=== PATIENT | male | born 1945 | race African-American/Black ===

== ENCOUNTER 2019-08-21 15:25 | Inpatient (IN) | payer MEDICARE ==
[~2019-08-21] VITALS: Ht 177.8 cm; Wt 64.0 kg
[2019-08-21 16:28] LABS: EOSINOPHILS % 0.2 % (0.0-5.0); HEMATOCRIT. 50.6 % (42.0-52.0); HEMOGLOBIN. 16.7 g/dL (14.0-18.0); LYMPHOCYTES % 12.7 % (20.0-50.0); MEAN CORPUSCULAR HEMOGLOBIN 31.5 pg (28.0-32.0); MEAN CORPUSCULAR VOLUME 95.6 fL (80.0-94.0); MONOCYTES % 13.3 % (2.0-8.0); NEUTROPHILS % 72.8 % (40.0-76.0); PLATELET 138 x1000/uL (130-400); RED BLOOD CELL COUNT 5.29 mill/uL (4.7-6.1); RED CELL DISTRIBUTION WIDTH 16.8 % (11.6-14.6)
[2019-08-21] MEDS ORDERED: SODIUM CHLORIDE 0.9% 1,000 ML IV ONE (16:33)
[2019-08-21 16:37] LABS: CHLORIDE 101 mEq/L (98-107)
[2019-08-21 16:41] LABS: ETHANOL BLOOD < 10 mg/dL
[2019-08-21 16:47] LABS: D-DIMER 5.14 mg/L FEU (<0.50); INR 1.6; PROTHROMBIN TIME 15.9 sec (9.6-11.0)
[2019-08-21] MEDS ORDERED: DEXTROSE 50% WATER 50ML SYRINGE IV ONE (17:00)
[2019-08-21] MEDS ORDERED: CALCIUM CHLORIDE 1GM/10ML SYR IV ONE (17:00)
[2019-08-21] MEDS ORDERED: ASPIRIN 325MG EC TABLET PO ONE (17:00)
[2019-08-21] MEDS ORDERED: INSULIN REGULAR (HUMULIN R) 300UNITS/3ML IV ONE (17:00)
[2019-08-21] MEDS ORDERED: SODIUM BICARBONATE 8.4% 1 MEQ/ML 50ML SYR IV ONE (17:00)
[2019-08-21 17:45] LABS: CLARITY URINE CLOUDY (CLEAR); COLOR URINE DARK YELLOW (YELLOW); KETONES URINE TRACE (NEGATIVE); LEUKOCYTE ESTERASE URINE TRACE (NEGATIVE); NITRITE URINE NEGATIVE (NEGATIVE); OCCULT BLOOD URINE NEGATIVE (NEGATIVE); PROTEIN URINE 1+ (NEGATIVE); SPECIFIC GRAVITY URINE 1.024 (1.005-1.030)
[2019-08-21 18:12] LABS: *AMPHETAMINES SCREEN URINE NEGATIVE (NEGATIVE); *BARBITURATES SCREEN URINE NEGATIVE (NEGATIVE); *BENZODIAZEPINES SCREEN URINE NEGATIVE (NEGATIVE); *COCAINE SCREEN URINE NEGATIVE (NEGATIVE); METHADONE URINE SCREEN NEGATIVE (NEGATIVE); OPIATES URINE SCREEN NEGATIVE (NEGATIVE)
[2019-08-21 18:13] LABS: CANNABINOID URINE SCREEN NEGATIVE (NEGATIVE); PHENCYCLIDINE URINE SCREEN NEGATIVE (NEGATIVE)
[2019-08-21] MEDS ORDERED: DILTIAZEM HCL 5MG/ML 5ML VIAL IV ONE (18:30)
[2019-08-21] MEDS ORDERED: ENOXAPARIN 80MG/0.8ML SYR SUBCUT ONE (19:00)
[2019-08-21] MEDS ORDERED: DILTIAZEM HCL 125 MG in DEXT 5% WATER 100 ML IV ONE (19:30)
[2019-08-21] MEDS ORDERED: FUROSEMIDE 20MG/2ML VIAL IVP ONE (19:30)
[2019-08-21] MEDS ORDERED: DILTIAZEM HCL 125 MG in DEXT 5% WATER 100 ML IV SCH (19:45)
[2019-08-21] MEDS ORDERED: IOHEXOL-350 100 ML BOTTLE ONE (20:10)
[2019-08-21 22:40] VITALS: BP 108/67
[2019-08-21] MEDS ORDERED: CLONIDINE 0.1MG TABLET PO PRN (22:45)
[2019-08-21] MEDS ORDERED: DOCUSATE SODIUM 100MG CAPSULE PO PRN (22:45)
[2019-08-21] MEDS ORDERED: MAGNESIUM/ALUMINUM HYDROXIDE/SIMETHICONE 30ML UDC PO PRN (22:45)
[2019-08-21] MEDS ORDERED: HYDROCODONE/ACETAMINOPHEN 5/325MG TABLET PO PRN (22:45)
[2019-08-21] MEDS ORDERED: ACETAMINOPHEN 325MG TABLET PO PRN (22:45)
[2019-08-21] MEDS ORDERED: KETOROLAC 15MG/ML VIAL IV PRN (22:45)
[2019-08-22] VITALS (12 sets, daily range): BP systolic 90–139; BP diastolic 55–79
[2019-08-22] MEDS ORDERED: DILTIAZEM HCL 125 MG in DEXT 5% WATER 100 ML IV SCH (02:00)
[2019-08-22 07:18] LABS: CHLORIDE 104 mEq/L (98-107)
[2019-08-22 07:25] LABS: BASOPHILS % 0.4 % (0.0-2.0); EOSINOPHILS % 0.1 % (0.0-5.0); HEMATOCRIT. 46.9 % (42.0-52.0); HEMOGLOBIN. 15.2 g/dL (14.0-18.0); LYMPHOCYTES % 14.3 % (20.0-50.0); MEAN CORPUSCULAR HEMOGLOBIN 31.2 pg (28.0-32.0); MEAN CORPUSCULAR VOLUME 96.2 fL (80.0-94.0); MEAN PLATELET VOLUME 11.7 fl (7.4-10.4); MONOCYTES % 12.7 % (2.0-8.0); NEUTROPHILS % 72.5 % (40.0-76.0); PLATELET 100 x1000/uL (130-400); RED BLOOD CELL COUNT 4.88 mill/uL (4.7-6.1); RED CELL DISTRIBUTION WIDTH 16.4 % (11.6-14.6)
[2019-08-22 07:43] LABS: PHOSPHORUS 4.7 mg/dL (2.5-4.9)
[2019-08-22 07:44] LABS: LDL CHOLESTEROL 29 mg/dL (5-100)
[2019-08-22 07:45] LABS: HDL CHOLESTEROL 35 mg/dL (40-59)
[2019-08-22] MEDS ORDERED: FUROSEMIDE 20MG/2ML VIAL IVP SCH ×2 (08:30→11:00)
[2019-08-22] MEDS: ENOXAPARIN 80MG/0.8ML SYR SUBCUT SCH ×2 (08:43→20:49)
[2019-08-22 11:02] LABS: PLATELET ESTIMATE DECREASED
[2019-08-22] MEDS: LISINOPRIL 2.5MG TABLET PO SCH (11:38)
[2019-08-22 12:50] LABS: HEPATITIS A AB IGM NEGATIVE (NEGATIVE)
[2019-08-23] VITALS (48 sets, daily range): BP systolic 61–145; BP diastolic 35–86
[2019-08-23 06:20] LABS: CHLORIDE 103 mEq/L (98-107)
[2019-08-23 06:29] LABS: BASOPHILS % 0.8 % (0.0-2.0); EOSINOPHILS % 0.4 % (0.0-5.0); LYMPHOCYTES % 17.1 % (20.0-50.0); MEAN CORPUSCULAR HEMOGLOBIN 31.3 pg (28.0-32.0); MEAN CORPUSCULAR VOLUME 96.2 fL (80.0-94.0); MEAN PLATELET VOLUME 11.8 fl (7.4-10.4); MONOCYTES % 14.1 % (2.0-8.0); NEUTROPHILS % 67.6 % (40.0-76.0); PLATELET 130 x1000/uL (130-400); RED BLOOD CELL COUNT 4.78 mill/uL (4.7-6.1); RED CELL DISTRIBUTION WIDTH 16.2 % (11.6-14.6)
[2019-08-23] MEDS: ENOXAPARIN 80MG/0.8ML SYR SUBCUT SCH ×2 (08:02→20:27)
[2019-08-23] MEDS: LISINOPRIL 2.5MG TABLET PO SCH (08:03)
[2019-08-23] MEDS ORDERED: FUROSEMIDE 40MG/4ML VIAL IV SCH (09:00)
[2019-08-23] MEDS ORDERED: FUROSEMIDE 20MG/2ML VIAL IVP NR (10:00)
[2019-08-24] VITALS (60 sets, daily range): BP systolic 93–136; BP diastolic 52–94
[2019-08-24 05:03] LABS: BASOPHILS % 0.7 % (0.0-2.0); EOSINOPHILS % 0.7 % (0.0-5.0); HEMATOCRIT. 47.9 % (42.0-52.0); HEMOGLOBIN. 15.7 g/dL (14.0-18.0); LYMPHOCYTES % 15.1 % (20.0-50.0); MEAN CORPUSCULAR HEMOGLOBIN 31.1 pg (28.0-32.0); MEAN CORPUSCULAR VOLUME 95.1 fL (80.0-94.0); MEAN PLATELET VOLUME 11.5 fl (7.4-10.4); MONOCYTES % 12.2 % (2.0-8.0); NEUTROPHILS % 71.3 % (40.0-76.0); PLATELET 126 x1000/uL (130-400); RED BLOOD CELL COUNT 5.03 mill/uL (4.7-6.1); RED CELL DISTRIBUTION WIDTH 16.5 % (11.6-14.6)
[2019-08-24 05:10] LABS: CHLORIDE 104 mEq/L (98-107)
[2019-08-24] MEDS: ENOXAPARIN 80MG/0.8ML SYR SUBCUT SCH ×2 (08:08→21:14)
[2019-08-24] MEDS ORDERED: FUROSEMIDE 40MG/4ML VIAL IVP SCH (09:30)
[2019-08-24] MEDS: MILRINONE 20MG-DEXT 5% PREMIX 100 ML IV SCH (10:38)
[2019-08-24] MEDS: LORAZEPAM 2MG/ML CPJ IV PRN (10:48)
[2019-08-24] MEDS ORDERED: MILRINONE 20MG-DEXT 5% PREMIX 100 ML IV SCH (12:16)
[2019-08-24 13:40] LABS: INR 1.4
[2019-08-25] VITALS (84 sets, daily range): BP systolic 93–152; BP diastolic 51–97
[2019-08-25] MEDS: MILRINONE 20MG-DEXT 5% PREMIX 100 ML IV SCH (04:30)
[2019-08-25 04:32] LABS: HEMATOCRIT. 45.5 % (42.0-52.0); HEMOGLOBIN. 14.9 g/dL (14.0-18.0); MEAN CORPUSCULAR HEMOGLOBIN 31.3 pg (28.0-32.0); MEAN CORPUSCULAR VOLUME 95.4 fL (80.0-94.0); MEAN PLATELET VOLUME 11.3 fl (7.4-10.4); PLATELET 120 x1000/uL (130-400); RED BLOOD CELL COUNT 4.77 mill/uL (4.7-6.1)
[2019-08-25 04:38] LABS: INR 1.3
[2019-08-25 04:53] LABS: CHLORIDE 106 mEq/L (98-107)
[2019-08-25] MEDS ORDERED: FUROSEMIDE 40MG/4ML VIAL IVP SCH (08:30)
[2019-08-25] MEDS: ENOXAPARIN 80MG/0.8ML SYR SUBCUT SCH ×2 (09:00→21:22)
[2019-08-25] MEDS: POTASSIUM CHLORIDE 20MEQ TABLET SR PO SCH (09:40)
[2019-08-25] MEDS ORDERED: SODIUM BICARBONATE 4% (2.4MEQ) 5ML VIAL IV ONE (09:49)
[2019-08-25 14:07] LABS: PLATELET ESTIMATE SLIGHTLY DECREASED
[2019-08-25] MEDS: THROAT LOZENGES-BENZOCAINE/MENTH/CETYLPYRD CL LOZENGES MM PRN ×2 (16:20→22:45)
[2019-08-25] MEDS: FUROSEMIDE 40MG/4ML VIAL IVP SCH (17:14)
[2019-08-25] MEDS: LORAZEPAM 2MG/ML CPJ IV PRN (22:46)
[2019-08-26] VITALS (74 sets, daily range): BP systolic 73–155; BP diastolic 30–92
[2019-08-26 04:51] LABS: CHLORIDE 102 mEq/L (98-107)
[2019-08-26 04:54] LABS: BASOPHILS % 0.7 % (0.0-2.0); EOSINOPHILS % 1.9 % (0.0-5.0); HEMOGLOBIN. 15.7 g/dL (14.0-18.0); LYMPHOCYTES % 18.7 % (20.0-50.0); MEAN CORPUSCULAR HEMOGLOBIN 31.5 pg (28.0-32.0); MEAN CORPUSCULAR VOLUME 96.4 fL (80.0-94.0); MEAN PLATELET VOLUME 11.4 fl (7.4-10.4); MONOCYTES % 10.1 % (2.0-8.0); NEUTROPHILS % 68.6 % (40.0-76.0); PLATELET 128 x1000/uL (130-400); RED BLOOD CELL COUNT 4.98 mill/uL (4.7-6.1); RED CELL DISTRIBUTION WIDTH 16.1 % (11.6-14.6)
[2019-08-26] MEDS: FUROSEMIDE 40MG/4ML VIAL IVP SCH ×2 (08:10→16:16)
[2019-08-26] MEDS: POTASSIUM CHLORIDE 20MEQ TABLET SR PO SCH (08:10)
[2019-08-26] MEDS: ENOXAPARIN 80MG/0.8ML SYR SUBCUT SCH ×2 (08:11→20:20)
[2019-08-26] MEDS: CARVEDILOL 3.125 MG TABLET PO SCH ×2 (10:30→21:00)
[2019-08-26] MEDS: MILRINONE 20MG-DEXT 5% PREMIX 100 ML IV PRN (11:27)
[2019-08-26] MEDS: LORAZEPAM 2MG/ML CPJ IV PRN (21:42)
[2019-08-27] VITALS (89 sets, daily range): BP systolic 62–166; BP diastolic 46–113
[2019-08-27 04:45] LABS: BASOPHILS % 0.9 % (0.0-2.0); EOSINOPHILS % 2.5 % (0.0-5.0); HEMATOCRIT. 43.6 % (42.0-52.0); HEMOGLOBIN. 14.2 g/dL (14.0-18.0); MEAN CORPUSCULAR HEMOGLOBIN 31.1 pg (28.0-32.0); MEAN CORPUSCULAR VOLUME 95.7 fL (80.0-94.0); MEAN PLATELET VOLUME 11.4 fl (7.4-10.4); MONOCYTES % 12.5 % (2.0-8.0); NEUTROPHILS % 54.1 % (40.0-76.0); PLATELET 116 x1000/uL (130-400); RED BLOOD CELL COUNT 4.56 mill/uL (4.7-6.1); RED CELL DISTRIBUTION WIDTH 16.2 % (11.6-14.6)
[2019-08-27 04:49] LABS: CHLORIDE 103 mEq/L (98-107)
[2019-08-27] MEDS: MILRINONE 20MG-DEXT 5% PREMIX 100 ML IV PRN (08:11)
[2019-08-27] MEDS ORDERED: LIDOCAINE HCL 1% 20ML VIAL (Pyxis) INJ ONE (08:14)
[2019-08-27] MEDS ORDERED: IODIXANOL 320MG/ML 100 ML BOTTLE IV ONE (08:15)
[2019-08-27] MEDS ORDERED: MIDAZOLAM HCL 2 MG/2 ML VIAL ONE (08:15)
[2019-08-27] MEDS ORDERED: FENTANYL CITRATE/PF 50MCG/ML 2ML VIAL ONE (08:16)
[2019-08-27] MEDS ORDERED: ATROPINE SULFATE 1MG/10ML SYR IV PRN (09:00)
[2019-08-27] MEDS ORDERED: ACETAMINOPHEN 325MG TABLET PO PRN (09:00)
[2019-08-27] MEDS: CARVEDILOL 3.125 MG TABLET PO SCH ×2 (09:00→13:11)
[2019-08-27] MEDS: POTASSIUM CHLORIDE 20MEQ TABLET SR PO SCH (10:09)
[2019-08-27] MEDS: FUROSEMIDE 40MG/4ML VIAL IVP SCH ×2 (10:09→17:23)
[2019-08-27] MEDS ORDERED: MILRINONE 20MG-DEXT 5% PREMIX 100 ML IV PRN ×2 (13:45→20:00)
[2019-08-27] MEDS: AMIODARONE HCL 900 MG in DEXT 5% WATER 482 ML IV SCH (15:02)
[2019-08-27] MEDS: METOCLOPRAMIDE HCL 10MG/2ML VIAL IV PRN (18:38)
[2019-08-27] MEDS ORDERED: ONDANSETRON HCL 4MG TABLET PO PRN (19:30)
[2019-08-27] MEDS: MILRINONE 20MG-DEXT 5% PREMIX 100 ML IV SCH (20:51)
[2019-08-27] MEDS ORDERED: ENOXAPARIN 80MG/0.8ML SYR SUBCUT SCH (21:00)
[2019-08-28] VITALS (71 sets, daily range): BP systolic 88–135; BP diastolic 46–84
[2019-08-28] MEDS ORDERED: FUROSEMIDE 100MG/10ML VIAL IVP SCH (02:30)
[2019-08-28 05:05] LABS: BASOPHILS % 0.1 % (0.0-2.0); HEMATOCRIT. 46.8 % (42.0-52.0); HEMOGLOBIN. 15.2 g/dL (14.0-18.0); LYMPHOCYTES % 8.7 % (20.0-50.0); MEAN CORPUSCULAR HEMOGLOBIN 31.2 pg (28.0-32.0); MEAN CORPUSCULAR VOLUME 95.9 fL (80.0-94.0); MEAN PLATELET VOLUME 11.2 fl (7.4-10.4); MONOCYTES % 7.6 % (2.0-8.0); NEUTROPHILS % 83.6 % (40.0-76.0); PLATELET 133 x1000/uL (130-400); RED BLOOD CELL COUNT 4.88 mill/uL (4.7-6.1); RED CELL DISTRIBUTION WIDTH 16.1 % (11.6-14.6)
[2019-08-28] MEDS: MILRINONE 20MG-DEXT 5% PREMIX 100 ML IV SCH (08:00)
[2019-08-28] MEDS ORDERED: MILRINONE 20MG-DEXT 5% PREMIX 100 ML IV SCH (08:00)
[2019-08-28] MEDS: POTASSIUM CHLORIDE 20MEQ TABLET SR PO SCH (09:00)
[2019-08-28] MEDS: CARVEDILOL 3.125 MG TABLET PO SCH (09:30)
[2019-08-28] MEDS ORDERED: DOBUTAMINE HCL 500 MG in DEXT 5% WATER 210 ML IV SCH (13:00)
[2019-08-28] MEDS: DOPAMINE 800MG/500ML PREMIX 500 ML IV SCH (13:54)
[2019-08-28] MEDS: AMIODARONE HCL 900 MG in DEXT 5% WATER 482 ML IV SCH (14:29)
[2019-08-28] MEDS ORDERED: LIDOCAINE HCL 1% 20ML VIAL (Pyxis) INJ ONE (14:34)
[2019-08-28] MEDS: ENOXAPARIN 80MG/0.8ML SYR SUBCUT SCH ×2 (14:37→22:00)
[2019-08-28] MEDS ORDERED: FUROSEMIDE 100MG/10ML VIAL IVP NR (16:00)
[2019-08-28] MEDS ORDERED: METOLAZONE 5MG TABLET PO NR (16:00)
[2019-08-28 17:20] LABS: CREATINE KINASE 124 IU/L (39-308)
[2019-08-28] MEDS: AMIODARONE HCL 200 MG TABLET PO SCH (20:14)
[2019-08-28] MEDS ORDERED: ZOLPIDEM TARTRATE 5MG TABLET PO PRN (20:15)
[2019-08-29] VITALS (46 sets, daily range): BP systolic 88–124; BP diastolic 33–89
[2019-08-29] MEDS ORDERED: FUROSEMIDE 100MG/10ML VIAL IVP SCH ×2 (01:00→06:30)
[2019-08-29] MEDS ORDERED: METOLAZONE 2.5MG TABLET PO SCH ×2 (01:00→06:00)
[2019-08-29] MEDS: ENOXAPARIN 80MG/0.8ML SYR SUBCUT SCH ×2 (01:21→21:00)
[2019-08-29 05:39] LABS: BASOPHILS % 0.5 % (0.0-2.0); EOSINOPHILS % 0.1 % (0.0-5.0); HEMATOCRIT. 50.6 % (42.0-52.0); HEMOGLOBIN. 16.3 g/dL (14.0-18.0); LYMPHOCYTES % 15.4 % (20.0-50.0); MEAN CORPUSCULAR HEMOGLOBIN 30.8 pg (28.0-32.0); MEAN CORPUSCULAR VOLUME 95.7 fL (80.0-94.0); RED BLOOD CELL COUNT 5.28 mill/uL (4.7-6.1); RED CELL DISTRIBUTION WIDTH 15.9 % (11.6-14.6)
[2019-08-29] MEDS: AMIODARONE HCL 200 MG TABLET PO SCH ×2 (08:24→21:23)
[2019-08-29 08:59] LABS: BG BASE EXCESS 4.4 mmol/L (-2.0-2.0); BG CARBOXYHEMOGLOBIN 1.3 % (0.5-1.5); BG DEOXYHEMOGLOBIN 1.1 % (0.0-5.0); BG FRACTION INSPIRED OXYGEN 36; BG HCO3 ACT 27.4 mmol/L (22.0-26.0); BG METHEMOGLOBIN 0.4 % (0.0-1.5); BG OXYGEN SATURATION 98.9 % (92.0-98.5); BG OXYHEMOGLOBIN 97.2 % (94.0-97.0); BG PCO2 35.8 mmHg (35.0-45.0); BG PH 7.501 (7.350-7.450); BG PO2 131.6 mmHg (75.0-100.0); BG SAMPLE SITE RIGHT RADIAL; BG TOTAL HEMOGLOBIN 16.6 g/dL (12.0-18.0); BG VENT MODE NASAL CANNULA
[2019-08-29] MEDS ORDERED: SODIUM POLYSTYRENE SULFONATE 15 G/60 ML BOT PO SCH (09:00)
[2019-08-29] MEDS: DOBUTAMINE HCL IN DEXTROSE 5 % 250 ML IV SCH (10:17)
[2019-08-29 10:38] LABS: MEAN PLATELET VOLUME 11.9 fl (7.4-10.4); PLATELET 147 x1000/uL (130-400)
[2019-08-29] MEDS: DOPAMINE 800MG/500ML PREMIX 500 ML IV SCH (11:57)
[2019-08-29] MEDS ORDERED: POTASSIUM CHLORIDE 20MEQ TABLET SR PO NR (21:15)
[2019-08-30] VITALS (66 sets, daily range): BP systolic 90–126; BP diastolic 48–102
[2019-08-30 05:47] LABS: BASOPHILS % 0.2 % (0.0-2.0); EOSINOPHILS % 0.9 % (0.0-5.0); HEMATOCRIT. 48.8 % (42.0-52.0); LYMPHOCYTES % 14.1 % (20.0-50.0); MEAN CORPUSCULAR HEMOGLOBIN 30.9 pg (28.0-32.0); MEAN CORPUSCULAR VOLUME 94.4 fL (80.0-94.0); MONOCYTES % 10.2 % (2.0-8.0); NEUTROPHILS % 74.6 % (40.0-76.0); RED BLOOD CELL COUNT 5.16 mill/uL (4.7-6.1); RED CELL DISTRIBUTION WIDTH 15.7 % (11.6-14.6)
[2019-08-30 05:53] LABS: CHLORIDE 95 mEq/L (98-107)
[2019-08-30 06:09] LABS: PHOSPHORUS 2.3 mg/dL (2.5-4.9)
[2019-08-30 06:49] LABS: PLATELET 105 x1000/uL (130-400)
[2019-08-30] MEDS: PANTOPRAZOLE 40MG DR TABLET PO SCH (07:50)
[2019-08-30] MEDS ORDERED: POTASSIUM CHLORIDE 20MEQ TABLET SR PO SCH (08:00)
[2019-08-30] MEDS: AMIODARONE HCL 200 MG TABLET PO SCH ×2 (08:37→21:05)
[2019-08-30] MEDS: ENOXAPARIN 80MG/0.8ML SYR SUBCUT SCH (08:37)
[2019-08-30] MEDS ORDERED: POTASSIUM PHOS,M-BASIC-D-BASIC 10 MMOL in DEXT 5% WATER 246.6667 ML IV SCH (09:00)
[2019-08-30] MEDS ORDERED: LIDOCAINE HCL 1% 20ML VIAL (Pyxis) INJ ONE (09:10)
[2019-08-30] MEDS ORDERED: MIDAZOLAM HCL 2 MG/2 ML VIAL ONE (09:46)
[2019-08-30] MEDS ORDERED: SODIUM CHLORIDE 0.9% 10ML VIAL ONE (11:00)
[2019-08-30] MEDS ORDERED: CEFAZOLIN SODIUM 1000MG/VIAL ONE (11:00)
[2019-08-30 11:17] LABS: BG BASE EXCESS 5.8 mmol/L (-2.0-2.0); BG CARBOXYHEMOGLOBIN 0.4 % (0.5-1.5); BG DEOXYHEMOGLOBIN 31.5 % (0.0-5.0); BG FRACTION INSPIRED OXYGEN 32; BG HCO3 ACT 30.8 mmol/L (22.0-26.0); BG METHEMOGLOBIN 0.1 % (0.0-1.5); BG OXYGEN SATURATION 68.3 % (92.0-98.5); BG PCO2 45.9 mmHg (35.0-45.0); BG PH 7.445 (7.350-7.450); BG PO2 37.2 mmHg (75.0-100.0); BG SAMPLE SITE A-LINE; BG TOTAL HEMOGLOBIN 15.9 g/dL (12.0-18.0); BG VENT MODE NASAL CANNULA
[2019-08-30 11:20] LABS: BG BASE EXCESS 7.5 mmol/L (-2.0-2.0); BG DEOXYHEMOGLOBIN 0.9 % (0.0-5.0); BG FRACTION INSPIRED OXYGEN 32; BG HCO3 ACT 31.9 mmol/L (22.0-26.0); BG METHEMOGLOBIN 0.4 % (0.0-1.5); BG OXYGEN SATURATION 99.1 % (92.0-98.5); BG OXYHEMOGLOBIN 97.7 % (94.0-97.0); BG PCO2 43.5 mmHg (35.0-45.0); BG PH 7.483 (7.350-7.450); BG PO2 148.5 mmHg (75.0-100.0); BG SAMPLE SITE A-LINE; BG TOTAL HEMOGLOBIN 15.6 g/dL (12.0-18.0); BG VENT MODE NASAL CANNULA
[2019-08-30] MEDS ORDERED: FENTANYL CITRATE/PF 50MCG/ML 2ML VIAL ONE (11:26)
[2019-08-30 11:34] LABS: BG BASE EXCESS 5.6 mmol/L (-2.0-2.0); BG CARBOXYHEMOGLOBIN 0.6 % (0.5-1.5); BG DEOXYHEMOGLOBIN 35.8 % (0.0-5.0); BG FRACTION INSPIRED OXYGEN 32; BG HCO3 ACT 30.7 mmol/L (22.0-26.0); BG METHEMOGLOBIN 0.1 % (0.0-1.5); BG OXYGEN SATURATION 63.9 % (92.0-98.5); BG OXYHEMOGLOBIN 63.5 % (94.0-97.0); BG PCO2 46.4 mmHg (35.0-45.0); BG PH 7.439 (7.350-7.450); BG PO2 35.3 mmHg (75.0-100.0); BG SAMPLE SITE A-LINE; BG TOTAL HEMOGLOBIN 15.3 g/dL (12.0-18.0); BG VENT MODE NASAL CANNULA
[2019-08-30 11:37] LABS: BG BASE EXCESS 7.6 mmol/L (-2.0-2.0); BG CARBOXYHEMOGLOBIN 1.3 % (0.5-1.5); BG DEOXYHEMOGLOBIN 0.8 % (0.0-5.0); BG FRACTION INSPIRED OXYGEN 32; BG HCO3 ACT 31.6 mmol/L (22.0-26.0); BG METHEMOGLOBIN 0.4 % (0.0-1.5); BG OXYGEN SATURATION 99.2 % (92.0-98.5); BG OXYHEMOGLOBIN 97.5 % (94.0-97.0); BG PCO2 41.7 mmHg (35.0-45.0); BG PH 7.497 (7.350-7.450); BG PO2 140.5 mmHg (75.0-100.0); BG SAMPLE SITE A-LINE; BG TOTAL HEMOGLOBIN 15.5 g/dL (12.0-18.0); BG VENT MODE NASAL CANNULA
[2019-08-30] MEDS ORDERED: IODIXANOL 320MG/ML 100 ML BOTTLE IV ONE (11:50)
[2019-08-30] MEDS ORDERED: GENTAMICIN SULF 40MG/ML 2ML VIAL ONE (12:00)
[2019-08-30] MEDS ORDERED: GENTAMICIN/NS IRRIGATION 500 ML IR ONE (12:00)
[2019-08-30] MEDS: DOBUTAMINE HCL IN DEXTROSE 5 % 250 ML IV SCH (12:49)
[2019-08-30 14:10] LABS: BG BASE EXCESS 2.7 mmol/L (-2.0-2.0); BG CARBOXYHEMOGLOBIN 0.7 % (0.5-1.5); BG DEOXYHEMOGLOBIN 1.2 % (0.0-5.0); BG FRACTION INSPIRED OXYGEN 32; BG HCO3 ACT 23.6 mmol/L (22.0-26.0); BG METHEMOGLOBIN 0.2 % (0.0-1.5); BG OXYGEN SATURATION 98.8 % (92.0-98.5); BG OXYHEMOGLOBIN 97.9 % (94.0-97.0); BG PCO2 27.8 mmHg (35.0-45.0); BG PH 7.546 (7.350-7.450); BG PO2 119.5 mmHg (75.0-100.0); BG SAMPLE SITE A-LINE; BG TOTAL HEMOGLOBIN 17.4 g/dL (12.0-18.0); BG VENT MODE NASAL CANNULA
[2019-08-30 14:12] LABS: BG BASE EXCESS 5.2 mmol/L (-2.0-2.0); BG CARBOXYHEMOGLOBIN 0.8 % (0.5-1.5); BG DEOXYHEMOGLOBIN 62.4 % (0.0-5.0); BG FRACTION INSPIRED OXYGEN 32; BG HCO3 ACT 31.6 mmol/L (22.0-26.0); BG METHEMOGLOBIN 0.1 % (0.0-1.5); BG OXYHEMOGLOBIN 36.7 % (94.0-97.0); BG PH 7.402 (7.350-7.450); BG PO2 < 30.3 mmHg (75.0-100.0); BG SAMPLE SITE A-LINE; BG TOTAL HEMOGLOBIN 17.3 g/dL (12.0-18.0); BG VENT MODE NASAL CANNULA
[2019-08-30] MEDS ORDERED: FUROSEMIDE 20MG/2ML VIAL ONE (14:16)
[2019-08-30] MEDS ORDERED: HYDROCODONE/ACETAMINOPHEN 5/325MG TABLET PO PRN (15:30)
[2019-08-30] MEDS: DOPAMINE 800MG/500ML PREMIX 500 ML IV SCH (16:02)
[2019-08-31] VITALS (78 sets, daily range): BP systolic 75–136; BP diastolic 38–100
[2019-08-31] MEDS: DOPAMINE 800MG/500ML PREMIX 500 ML IV SCH (05:01)
[2019-08-31 05:09] LABS: BASOPHILS % 0.3 % (0.0-2.0); EOSINOPHILS % 0.4 % (0.0-5.0); HEMATOCRIT. 49.5 % (42.0-52.0); HEMOGLOBIN. 16.2 g/dL (14.0-18.0); LYMPHOCYTES % 9.9 % (20.0-50.0); MEAN CORPUSCULAR VOLUME 94.7 fL (80.0-94.0); MONOCYTES % 8.9 % (2.0-8.0); NEUTROPHILS % 80.5 % (40.0-76.0); RED BLOOD CELL COUNT 5.22 mill/uL (4.7-6.1); RED CELL DISTRIBUTION WIDTH 15.6 % (11.6-14.6)
[2019-08-31 05:33] LABS: CHLORIDE 95 mEq/L (98-107)
[2019-08-31 05:45] LABS: PHOSPHORUS 3.1 mg/dL (2.5-4.9)
[2019-08-31] MEDS ORDERED: POTASSIUM CHLORIDE 20MEQ TABLET SR PO SCH (07:30)
[2019-08-31] MEDS: AMIODARONE HCL 200 MG TABLET PO SCH ×2 (07:52→21:14)
[2019-08-31] MEDS: PANTOPRAZOLE 40MG DR TABLET PO SCH (07:52)
[2019-08-31 09:01] LABS: MEAN PLATELET VOLUME 11.2 fl (7.4-10.4); PLATELET 119 x1000/uL (130-400)
[2019-08-31] MEDS ORDERED: FUROSEMIDE 40MG/4ML VIAL IVP SCH (10:45)
[2019-08-31] MEDS ORDERED: NON FORMULARY PATIENT HOME MED XX SCH (11:45)
[2019-08-31] MEDS: DOBUTAMINE HCL IN DEXTROSE 5 % 250 ML IV SCH (11:50)
[2019-08-31] MEDS: APIXABAN 5 MG TABLET PO SCH ×2 (11:50→16:02)
[2019-08-31] MEDS: CARVEDILOL 3.125 MG TABLET PO SCH ×2 (11:52→21:00)
[2019-08-31] MEDS: SACUBITRIL/VALSARTAN 24/26 TAB PO SCH ×2 (13:01→21:16)
[2019-08-31] MEDS: SPIRONOLACTONE 25MG TABLET PO SCH (13:01)
[2019-08-31] MEDS: SILDENAFIL CITRATE 20MG TABLET PO SCH ×2 (13:01→21:16)
[2019-08-31] MEDS: FUROSEMIDE 40MG/4ML VIAL IVP SCH (16:02)
[2019-08-31] MEDS: DOPAMINE 800MG PREMIX (DOUBLE) 250 ML IV PRN (17:18)
[2019-08-31] MEDS ORDERED: CARVEDILOL 3.125 MG TABLET PO SCH (21:00)
[2019-09-01] VITALS (79 sets, daily range): BP systolic 45–125; BP diastolic 32–69
[2019-09-01] MEDS: SILDENAFIL CITRATE 20MG TABLET PO SCH ×3 (05:31→23:24)
[2019-09-01 06:07] LABS: HEMATOCRIT. 52.3 % (42.0-52.0); HEMOGLOBIN. 17.2 g/dL (14.0-18.0); MEAN CORPUSCULAR HEMOGLOBIN 30.9 pg (28.0-32.0); MEAN CORPUSCULAR VOLUME 93.9 fL (80.0-94.0); MEAN PLATELET VOLUME 11.4 fl (7.4-10.4); PLATELET 123 x1000/uL (130-400); RED BLOOD CELL COUNT 5.57 mill/uL (4.7-6.1); RED CELL DISTRIBUTION WIDTH 15.7 % (11.6-14.6)
[2019-09-01 06:09] LABS: CHLORIDE 93 mEq/L (98-107)
[2019-09-01 06:16] LABS: PHOSPHORUS 2.2 mg/dL (2.5-4.9)
[2019-09-01 07:41] LABS: PLATELET ESTIMATE DECREASED
[2019-09-01] MEDS: FUROSEMIDE 40MG/4ML VIAL IVP SCH (08:59)
[2019-09-01] MEDS: PANTOPRAZOLE 40MG DR TABLET PO SCH (08:59)
[2019-09-01] MEDS ORDERED: SODIUM PHOS,M-BASIC-D-BASIC 15 MM in DEXT 5% WATER 245 ML IV SCH (09:00)
[2019-09-01] MEDS: SACUBITRIL/VALSARTAN 24/26 TAB PO SCH (09:00)
[2019-09-01] MEDS: CARVEDILOL 3.125 MG TABLET PO SCH (09:00)
[2019-09-01] MEDS: SPIRONOLACTONE 25MG TABLET PO SCH (09:00)
[2019-09-01] MEDS ORDERED: LOSARTAN POTASSIUM 25 MG TABLET PO SCH (09:00)
[2019-09-01] MEDS: APIXABAN 5 MG TABLET PO SCH ×2 (09:00→17:03)
[2019-09-01] MEDS: POTASSIUM CHLORIDE 20MEQ TABLET SR PO SCH (09:01)
[2019-09-01] MEDS: AMIODARONE HCL 200 MG TABLET PO SCH ×2 (09:01→23:26)
[2019-09-02] VITALS (98 sets, daily range): BP systolic 71–164; BP diastolic 42–78
[2019-09-02 05:17] LABS: BASOPHILS % 0.5 % (0.0-2.0); EOSINOPHILS % 1.1 % (0.0-5.0); HEMOGLOBIN. 15.2 g/dL (14.0-18.0); MEAN CORPUSCULAR HEMOGLOBIN 31.2 pg (28.0-32.0); MEAN CORPUSCULAR VOLUME 94.4 fL (80.0-94.0); NEUTROPHILS % 76.4 % (40.0-76.0); RED BLOOD CELL COUNT 4.87 mill/uL (4.7-6.1); RED CELL DISTRIBUTION WIDTH 15.7 % (11.6-14.6)
[2019-09-02 06:23] LABS: CHLORIDE 91 mEq/L (98-107)
[2019-09-02 06:33] LABS: PHOSPHORUS 2.2 mg/dL (2.5-4.9)
[2019-09-02] MEDS: SILDENAFIL CITRATE 20MG TABLET PO SCH ×2 (06:34→14:00)
[2019-09-02] MEDS: PANTOPRAZOLE 40MG DR TABLET PO SCH (07:50)
[2019-09-02 08:16] LABS: MEAN PLATELET VOLUME 11.3 fl (7.4-10.4); PLATELET 122 x1000/uL (130-400)
[2019-09-02] MEDS: APIXABAN 5 MG TABLET PO SCH ×2 (08:43→17:00)
[2019-09-02] MEDS: POTASSIUM CHLORIDE 20MEQ TABLET SR PO SCH (08:43)
[2019-09-02] MEDS: AMIODARONE HCL 200 MG TABLET PO SCH (08:44)
[2019-09-02] MEDS: SPIRONOLACTONE 25MG TABLET PO SCH (08:53)
[2019-09-02] MEDS ORDERED: SODIUM PHOS,M-BASIC-D-BASIC 20 MM in DEXT 5% WATER 243.3333 ML IV SCH (09:00)
[2019-09-02] MEDS ORDERED: FUROSEMIDE 40MG/4ML VIAL IVP SCH (09:00)
[2019-09-02] MEDS ORDERED: POTASSIUM CHLORIDE 20MEQ TABLET SR PO SCH (11:30)
[2019-09-03] VITALS (72 sets, daily range): BP systolic 72–131; BP diastolic 17–93
[2019-09-03] MEDS: SILDENAFIL CITRATE 20MG TABLET PO SCH ×2 (00:10→06:15)
[2019-09-03] MEDS: DOPAMINE 800MG PREMIX (DOUBLE) 250 ML IV PRN (02:31)
[2019-09-03 06:12] LABS: BASOPHILS % 0.7 % (0.0-2.0); EOSINOPHILS % 2.1 % (0.0-5.0); HEMATOCRIT. 41.8 % (42.0-52.0); HEMOGLOBIN. 13.7 g/dL (14.0-18.0); LYMPHOCYTES % 14.4 % (20.0-50.0); MEAN CORPUSCULAR HEMOGLOBIN 30.7 pg (28.0-32.0); MEAN CORPUSCULAR VOLUME 93.9 fL (80.0-94.0); MEAN PLATELET VOLUME 11.1 fl (7.4-10.4); MONOCYTES % 9.7 % (2.0-8.0); NEUTROPHILS % 73.1 % (40.0-76.0); PLATELET 129 x1000/uL (130-400); RED BLOOD CELL COUNT 4.45 mill/uL (4.7-6.1); RED CELL DISTRIBUTION WIDTH 15.3 % (11.6-14.6)
[2019-09-03 06:53] LABS: CHLORIDE 93 mEq/L (98-107)
[2019-09-03 07:02] LABS: PHOSPHORUS 2.4 mg/dL (2.5-4.9)
[2019-09-03] MEDS: APIXABAN 5 MG TABLET PO SCH ×2 (08:49→18:01)
[2019-09-03] MEDS: SPIRONOLACTONE 25MG TABLET PO SCH (08:49)
[2019-09-03] MEDS: POTASSIUM CHLORIDE 20MEQ TABLET SR PO SCH (08:49)
[2019-09-03] MEDS: FUROSEMIDE 40MG TABLET PO SCH (08:49)
[2019-09-03] MEDS: AMIODARONE HCL 200 MG TABLET PO SCH (08:50)
[2019-09-03] MEDS: PANTOPRAZOLE 40MG DR TABLET PO SCH (08:50)
[2019-09-03] MEDS: POTASSIUM-SODIUM PHOSPHATE POWDER PACKET PO SCH ×2 (12:54→18:00)
[2019-09-03] MEDS: MIDODRINE HCL 2.5MG TABLET PO SCH ×2 (12:54→18:01)
[2019-09-04] VITALS (46 sets, daily range): BP systolic 57–112; BP diastolic 33–79
[2019-09-04 05:48] LABS: BASOPHILS % 1.2 % (0.0-2.0); EOSINOPHILS % 1.8 % (0.0-5.0); HEMATOCRIT. 43.5 % (42.0-52.0); HEMOGLOBIN. 14.1 g/dL (14.0-18.0); LYMPHOCYTES % 23.6 % (20.0-50.0); MEAN CORPUSCULAR VOLUME 95.4 fL (80.0-94.0); MEAN PLATELET VOLUME 10.7 fl (7.4-10.4); MONOCYTES % 10.2 % (2.0-8.0); NEUTROPHILS % 63.2 % (40.0-76.0); PLATELET 143 x1000/uL (130-400); RED BLOOD CELL COUNT 4.56 mill/uL (4.7-6.1); RED CELL DISTRIBUTION WIDTH 15.6 % (11.6-14.6)
[2019-09-04 05:56] LABS: CHLORIDE 95 mEq/L (98-107)
[2019-09-04 06:20] LABS: PHOSPHORUS 2.7 mg/dL (2.5-4.9)
[2019-09-04] MEDS: AMIODARONE HCL 200 MG TABLET PO SCH (08:44)
[2019-09-04] MEDS: MIDODRINE HCL 5MG TABLET PO SCH ×3 (08:44→18:09)
[2019-09-04] MEDS: FUROSEMIDE 40MG TABLET PO SCH (08:44)
[2019-09-04] MEDS: APIXABAN 5 MG TABLET PO SCH ×2 (08:44→18:09)
[2019-09-04] MEDS: POTASSIUM-SODIUM PHOSPHATE POWDER PACKET PO SCH ×2 (08:44→18:08)
[2019-09-04] MEDS: PANTOPRAZOLE 40MG DR TABLET PO SCH (08:44)
[2019-09-04] MEDS: METOPROLOL TARTRATE 25MG TABLET PO SCH (20:31)
[2019-09-05] VITALS (46 sets, daily range): BP systolic 49–116; BP diastolic 25–75
[2019-09-05] MEDS: METOPROLOL TARTRATE 25MG TABLET PO SCH ×3 (00:48→20:33)
[2019-09-05 05:20] LABS: BASOPHILS % 1.1 % (0.0-2.0); EOSINOPHILS % 1.6 % (0.0-5.0); HEMATOCRIT. 39.5 % (42.0-52.0); HEMOGLOBIN. 12.8 g/dL (14.0-18.0); LYMPHOCYTES % 18.6 % (20.0-50.0); MEAN CORPUSCULAR HEMOGLOBIN 30.5 pg (28.0-32.0); MEAN CORPUSCULAR VOLUME 94.3 fL (80.0-94.0); MEAN PLATELET VOLUME 10.6 fl (7.4-10.4); MONOCYTES % 9.6 % (2.0-8.0); NEUTROPHILS % 69.1 % (40.0-76.0); PLATELET 145 x1000/uL (130-400); RED BLOOD CELL COUNT 4.19 mill/uL (4.7-6.1); RED CELL DISTRIBUTION WIDTH 15.3 % (11.6-14.6)
[2019-09-05 05:27] LABS: CHLORIDE 97 mEq/L (98-107)
[2019-09-05] MEDS: MIDODRINE HCL 5MG TABLET PO SCH ×3 (08:14→16:42)
[2019-09-05] MEDS: FUROSEMIDE 40MG TABLET PO SCH (08:14)
[2019-09-05] MEDS: POTASSIUM-SODIUM PHOSPHATE POWDER PACKET PO SCH ×2 (08:15→16:41)
[2019-09-05] MEDS: APIXABAN 5 MG TABLET PO SCH ×2 (08:15→16:40)
[2019-09-05] MEDS: PANTOPRAZOLE 40MG DR TABLET PO SCH (08:15)
[2019-09-05] MEDS: AMIODARONE HCL 200 MG TABLET PO SCH (08:36)
[2019-09-05] MEDS ORDERED: LORAZEPAM 0.5MG TABLET PO PRN (11:45)
[2019-09-05] MEDS: LORAZEPAM 0.5MG TABLET PO PRN ×2 (12:01→23:34)
[2019-09-05 12:39] LABS: HEMATOCRIT 42.5 % (42.0-52.0); HEMOGLOBIN 13.8 g/dL (14.0-18.0)
[2019-09-06] VITALS (26 sets, daily range): BP systolic 77–113; BP diastolic 46–78
[2019-09-06 05:32] LABS: HEMATOCRIT. 42.7 % (42.0-52.0); HEMOGLOBIN. 13.9 g/dL (14.0-18.0); MEAN CORPUSCULAR HEMOGLOBIN 30.8 pg (28.0-32.0); MEAN CORPUSCULAR VOLUME 94.2 fL (80.0-94.0); MEAN PLATELET VOLUME 10.8 fl (7.4-10.4); PLATELET 180 x1000/uL (130-400); RED BLOOD CELL COUNT 4.53 mill/uL (4.7-6.1); RED CELL DISTRIBUTION WIDTH 15.3 % (11.6-14.6)
[2019-09-06 07:15] LABS: PLATELET ESTIMATE NORMAL
[2019-09-06] MEDS: POTASSIUM-SODIUM PHOSPHATE POWDER PACKET PO SCH ×2 (08:08→17:37)
[2019-09-06] MEDS: PANTOPRAZOLE 40MG DR TABLET PO SCH (08:08)
[2019-09-06] MEDS: AMIODARONE HCL 200 MG TABLET PO SCH (08:08)
[2019-09-06] MEDS: MIDODRINE HCL 5MG TABLET PO SCH ×3 (08:08→17:45)
[2019-09-06] MEDS: APIXABAN 5 MG TABLET PO SCH ×2 (08:08→17:37)
[2019-09-06] MEDS: LORAZEPAM 0.5MG TABLET PO PRN ×2 (08:09→22:34)
[2019-09-06] MEDS: METOPROLOL TARTRATE 25MG TABLET PO SCH ×2 (08:09→20:52)
[2019-09-06] MEDS: FUROSEMIDE 40MG TABLET PO SCH (09:05)
[2019-09-07] VITALS (9 sets, daily range): BP systolic 11–153; BP diastolic 51–77
[2019-09-07 06:58] LABS: HEMATOCRIT. 44.7 % (42.0-52.0); HEMOGLOBIN. 14.6 g/dL (14.0-18.0); MEAN CORPUSCULAR HEMOGLOBIN 30.7 pg (28.0-32.0); MEAN CORPUSCULAR VOLUME 94.1 fL (80.0-94.0); MEAN PLATELET VOLUME 11.4 fl (7.4-10.4); PLATELET 203 x1000/uL (130-400); RED BLOOD CELL COUNT 4.75 mill/uL (4.7-6.1); RED CELL DISTRIBUTION WIDTH 15.4 % (11.6-14.6)
[2019-09-07] MEDS: APIXABAN 5 MG TABLET PO SCH ×2 (09:13→17:15)
[2019-09-07] MEDS: MIDODRINE HCL 5MG TABLET PO SCH ×3 (09:14→17:15)
[2019-09-07] MEDS: PANTOPRAZOLE 40MG DR TABLET PO SCH (09:15)
[2019-09-07] MEDS: POTASSIUM-SODIUM PHOSPHATE POWDER PACKET PO SCH ×2 (09:15→17:14)
[2019-09-07] MEDS: AMIODARONE HCL 200 MG TABLET PO SCH (09:16)
[2019-09-07] MEDS: METOPROLOL TARTRATE 25MG TABLET PO SCH ×2 (09:16→21:01)
[2019-09-07 11:17] LABS: PLATELET ESTIMATE NORMAL
[2019-09-08] VITALS (12 sets, daily range): BP systolic 81–103; BP diastolic 45–73
[2019-09-08] MEDS: LORAZEPAM 0.5MG TABLET PO PRN ×2 (01:06→21:45)
[2019-09-08] MEDS: METOPROLOL TARTRATE 25MG TABLET PO SCH ×2 (09:00→21:45)
[2019-09-08] MEDS: POTASSIUM-SODIUM PHOSPHATE POWDER PACKET PO SCH ×2 (09:29→16:34)
[2019-09-08] MEDS: AMIODARONE HCL 200 MG TABLET PO SCH (09:34)
[2019-09-08] MEDS: PANTOPRAZOLE 40MG DR TABLET PO SCH (09:34)
[2019-09-08] MEDS: APIXABAN 5 MG TABLET PO SCH ×2 (09:35→16:35)
[2019-09-08] MEDS: MIDODRINE HCL 5MG TABLET PO SCH ×3 (09:35→16:34)
[2019-09-08 09:41] LABS: BASOPHILS % 0.5 % (0.0-2.0); EOSINOPHILS % 0.1 % (0.0-5.0); HEMATOCRIT. 40.7 % (42.0-52.0); HEMOGLOBIN. 13.2 g/dL (14.0-18.0); LYMPHOCYTES % 16.2 % (20.0-50.0); MEAN CORPUSCULAR HEMOGLOBIN 30.1 pg (28.0-32.0); MEAN CORPUSCULAR VOLUME 92.9 fL (80.0-94.0); MONOCYTES % 7.3 % (2.0-8.0); NEUTROPHILS % 75.9 % (40.0-76.0); RED BLOOD CELL COUNT 4.39 mill/uL (4.7-6.1); RED CELL DISTRIBUTION WIDTH 15.5 % (11.6-14.6)
[2019-09-08 12:23] LABS: PLATELET 192 x1000/uL (130-400)
[2019-09-08 13:25] LABS: BG BASE EXCESS -1.1 mmol/L (-2.0-2.0); BG CARBOXYHEMOGLOBIN 0.6 % (0.5-1.5); BG DEOXYHEMOGLOBIN 2.9 % (0.0-5.0); BG FRACTION INSPIRED OXYGEN 21; BG HCO3 ACT 18.9 mmol/L (22.0-26.0); BG METHEMOGLOBIN 0.3 % (0.0-1.5); BG OXYGEN SATURATION 97.1 % (92.0-98.5); BG OXYHEMOGLOBIN 96.2 % (94.0-97.0); BG PH 7.553 (7.350-7.450); BG SAMPLE SITE RIGHT FEMORAL; BG TOTAL HEMOGLOBIN 15.2 g/dL (12.0-18.0); BG VENT MODE ROOM AIR
[2019-09-08] MEDS: METOCLOPRAMIDE HCL 10MG/2ML VIAL IV PRN (21:45)
[2019-09-09] VITALS (14 sets, daily range): BP systolic 79–108; BP diastolic 50–70
[2019-09-09 07:44] LABS: BASOPHILS % 0.3 % (0.0-2.0); EOSINOPHILS % 0.2 % (0.0-5.0); HEMATOCRIT. 38.8 % (42.0-52.0); HEMOGLOBIN. 12.7 g/dL (14.0-18.0); LYMPHOCYTES % 13.5 % (20.0-50.0); MEAN CORPUSCULAR HEMOGLOBIN 30.4 pg (28.0-32.0); MEAN CORPUSCULAR VOLUME 92.6 fL (80.0-94.0); MONOCYTES % 9.4 % (2.0-8.0); NEUTROPHILS % 76.6 % (40.0-76.0); RED BLOOD CELL COUNT 4.19 mill/uL (4.7-6.1); RED CELL DISTRIBUTION WIDTH 15.3 % (11.6-14.6)
[2019-09-09] MEDS: APIXABAN 5 MG TABLET PO SCH ×2 (08:43→17:09)
[2019-09-09] MEDS: AMIODARONE HCL 200 MG TABLET PO SCH (08:44)
[2019-09-09] MEDS: MIDODRINE HCL 5MG TABLET PO SCH ×3 (08:44→17:09)
[2019-09-09] MEDS: POTASSIUM-SODIUM PHOSPHATE POWDER PACKET PO SCH ×2 (08:44→17:09)
[2019-09-09] MEDS: PANTOPRAZOLE 40MG DR TABLET PO SCH (08:48)
[2019-09-09] MEDS: LACTULOSE 20G/30ML UDC PO SCH ×3 (08:50→17:00)
[2019-09-09] MEDS: METOPROLOL TARTRATE 25MG TABLET PO SCH (09:30)
[2019-09-09 10:05] LABS: PLATELET 204 x1000/uL (130-400)
[2019-09-09 11:46] LABS: FOLIC ACID (FOLATE) SERUM 11.4 ng/mL (>5.38)
[2019-09-09 13:56] LABS: CLARITY URINE CLOUDY (CLEAR); COLOR URINE DARK YELLOW (YELLOW); KETONES URINE TRACE (NEGATIVE); LEUKOCYTE ESTERASE URINE NEGATIVE (NEGATIVE); NITRITE URINE NEGATIVE (NEGATIVE); OCCULT BLOOD URINE TRACE (NEGATIVE); PROTEIN URINE TRACE (NEGATIVE); SPECIFIC GRAVITY URINE 1.018 (1.005-1.030)
[2019-09-09] MEDS ORDERED: CARVEDILOL 3.125 MG TABLET PO SCH (21:00)
[2019-09-10] VITALS (14 sets, daily range): BP systolic 84–118; BP diastolic 49–77
[2019-09-10] MEDS: LORAZEPAM 0.5MG TABLET PO PRN (00:43)
[2019-09-10 07:07] LABS: BASOPHILS % 0.5 % (0.0-2.0); EOSINOPHILS % 1.1 % (0.0-5.0); HEMATOCRIT. 39.7 % (42.0-52.0); HEMOGLOBIN. 12.9 g/dL (14.0-18.0); LYMPHOCYTES % 20.9 % (20.0-50.0); MEAN CORPUSCULAR HEMOGLOBIN 30.4 pg (28.0-32.0); MEAN CORPUSCULAR VOLUME 93.6 fL (80.0-94.0); MEAN PLATELET VOLUME 10.9 fl (7.4-10.4); MONOCYTES % 11.3 % (2.0-8.0); NEUTROPHILS % 66.2 % (40.0-76.0); PLATELET 208 x1000/uL (130-400); RED BLOOD CELL COUNT 4.24 mill/uL (4.7-6.1); RED CELL DISTRIBUTION WIDTH 15.7 % (11.6-14.6)
[2019-09-10] MEDS: PANTOPRAZOLE 40MG DR TABLET PO SCH (07:56)
[2019-09-10] MEDS: MIDODRINE HCL 5MG TABLET PO SCH ×3 (09:00→17:08)
[2019-09-10] MEDS: AMIODARONE HCL 200 MG TABLET PO SCH (09:00)
[2019-09-10] MEDS: APIXABAN 2.5 MG TABLET PO SCH ×2 (09:27→17:08)
[2019-09-10] MEDS: POTASSIUM-SODIUM PHOSPHATE POWDER PACKET PO SCH ×2 (09:27→17:08)
[2019-09-10] MEDS ORDERED: DOPAMINE 800MG PREMIX (DOUBLE) 250 ML IV ONE ×2 (11:30→13:30)
[2019-09-10] MEDS ORDERED: DOBUTAMINE HCL 500 MG in DEXT 5% WATER 210 ML IV SCH (11:30)
[2019-09-10] MEDS: DOBUTAMINE HCL IN DEXTROSE 5 % 250 ML IV SCH (13:11)
[2019-09-10] MEDS ORDERED: DOPAMINE 800MG PREMIX (DOUBLE) 250 ML IV SCH (13:30)
[2019-09-11] VITALS (18 sets, daily range): BP systolic 102–140; BP diastolic 44–76
[2019-09-11] MEDS: LORAZEPAM 0.5MG TABLET PO PRN (01:10)
[2019-09-11 07:55] LABS: BASOPHILS % 0.5 % (0.0-2.0); EOSINOPHILS % 1.1 % (0.0-5.0); HEMATOCRIT. 38.7 % (42.0-52.0); HEMOGLOBIN. 12.8 g/dL (14.0-18.0); LYMPHOCYTES % 14.1 % (20.0-50.0); MEAN CORPUSCULAR HEMOGLOBIN 30.7 pg (28.0-32.0); MEAN CORPUSCULAR VOLUME 93.1 fL (80.0-94.0); MONOCYTES % 12.1 % (2.0-8.0); NEUTROPHILS % 72.2 % (40.0-76.0); PLATELET 180 x1000/uL (130-400); RED BLOOD CELL COUNT 4.16 mill/uL (4.7-6.1); RED CELL DISTRIBUTION WIDTH 15.4 % (11.6-14.6)
[2019-09-11] MEDS: PANTOPRAZOLE 40MG DR TABLET PO SCH (08:04)
[2019-09-11] MEDS ORDERED: POTASSIUM CHLORIDE 20MEQ TABLET SR PO NR (09:00)
[2019-09-11] MEDS: AMIODARONE HCL 200 MG TABLET PO SCH (09:32)
[2019-09-11] MEDS: POTASSIUM-SODIUM PHOSPHATE POWDER PACKET PO SCH ×2 (09:32→17:46)
[2019-09-11] MEDS: APIXABAN 2.5 MG TABLET PO SCH ×2 (09:32→17:46)
[2019-09-11] MEDS: MIDODRINE HCL 5MG TABLET PO SCH ×3 (09:32→17:46)
[2019-09-11] MEDS: DOBUTAMINE HCL IN DEXTROSE 5 % 250 ML IV SCH (14:23)
[2019-09-12] VITALS (7 sets, daily range): BP systolic 101–130; BP diastolic 55–83
[2019-09-12] MEDS: LORAZEPAM 0.5MG TABLET PO PRN (01:56)
[2019-09-12 07:14] LABS: BASOPHILS % 0.4 % (0.0-2.0); EOSINOPHILS % 1.6 % (0.0-5.0); HEMOGLOBIN. 12.9 g/dL (14.0-18.0); LYMPHOCYTES % 13.4 % (20.0-50.0); MEAN CORPUSCULAR HEMOGLOBIN 30.7 pg (28.0-32.0); MEAN CORPUSCULAR VOLUME 93.3 fL (80.0-94.0); MEAN PLATELET VOLUME 10.8 fl (7.4-10.4); MONOCYTES % 11.7 % (2.0-8.0); NEUTROPHILS % 72.9 % (40.0-76.0); PLATELET 156 x1000/uL (130-400); RED BLOOD CELL COUNT 4.18 mill/uL (4.7-6.1); RED CELL DISTRIBUTION WIDTH 15.6 % (11.6-14.6)
[2019-09-12] MEDS: PANTOPRAZOLE 40MG DR TABLET PO SCH (07:44)
[2019-09-12] MEDS: APIXABAN 2.5 MG TABLET PO SCH (07:54)
[2019-09-12] MEDS: POTASSIUM-SODIUM PHOSPHATE POWDER PACKET PO SCH (07:54)
[2019-09-12] MEDS: MIDODRINE HCL 5MG TABLET PO SCH (07:54)
[2019-09-12] MEDS: AMIODARONE HCL 200 MG TABLET PO SCH (07:55)
[2019-09-12] MEDS ORDERED: POTASSIUM CHLORIDE 20MEQ TABLET SR PO SCH (09:00)
[2019-09-12 15:06] LABS: 25-HYDROXY VITAMIN D3 3.4 ng/mL (.)
== END 2019-09-12 10:45 | DRG 286 ==
LOC: ER 15:25 → 3WST 17:59 → EDBEDREQSVC 18:03 → EDBEDREQTM 18:03 → EDBEDREQ 18:03 → ENRESERV 20:53 → MICUNO 08-23 10:41 → CVICU 08-28 13:54 → 5EST 09-06 10:00
PROVIDERS: ADMIT Family Medicine Adult Medicine; ATTEND Family Medicine Adult Medicine
PROC: 0W9B3ZZ Drainage of Left Pleural Cavity, Percutaneous Approach (ICD-10-PCS; 2019-08-25)
PROC: 4A023N7 Measurement of Cardiac Sampling and Pressure, Left Heart, Percutaneous Approach (ICD-10-PCS; principal; 2019-08-27)
PROC: B2111ZZ Fluoroscopy of Multiple Coronary Arteries using Low Osmolar Contrast (ICD-10-PCS; 2019-08-27)
PROC: B2131ZZ Fluoroscopy of Multiple Coronary Artery Bypass Grafts using Low Osmolar Contrast (ICD-10-PCS; 2019-08-27)
PROC: B41F1ZZ Fluoroscopy of Right Lower Extremity Arteries using Low Osmolar Contrast (ICD-10-PCS; 2019-08-27)
PROC: 02HV33Z Insertion of Infusion Device into Superior Vena Cava, Percutaneous Approach (ICD-10-PCS; 2019-08-28)
DX: I13.0 Hypertensive heart and chronic kidney disease with heart failure and stage 1 through stage 4 chronic kidney disease, or unspecified chronic kidney disease (principal); I26.99 Other pulmonary embolism without acute cor pulmonale; J96.00 Acute respiratory failure, unspecified whether with hypoxia or hypercapnia; I50.43 Acute on chronic combined systolic (congestive) and diastolic (congestive) heart failure; E43 Unspecified severe protein-calorie malnutrition; D68.9 Coagulation defect, unspecified; N17.9 Acute kidney failure, unspecified; E87.1 Hypo-osmolality and hyponatremia; E87.3 Alkalosis; J98.11 Atelectasis; L97.909 Non-pressure chronic ulcer of unspecified part of unspecified lower leg with unspecified severity; J91.8 Pleural effusion in other conditions classified elsewhere; Q21.0 Ventricular septal defect; I47.1 Supraventricular tachycardia; I47.2 Ventricular tachycardia; I44.0 Atrioventricular block, first degree; I42.0 Dilated cardiomyopathy; E87.5 Hyperkalemia; D69.6 Thrombocytopenia, unspecified; K76.1 Chronic passive congestion of liver; I27.81 Cor pulmonale (chronic); I27.29 Other secondary pulmonary hypertension; D64.9 Anemia, unspecified; E83.39 Other disorders of phosphorus metabolism; E87.6 Hypokalemia; F10.10 Alcohol abuse, uncomplicated; I25.10 Atherosclerotic heart disease of native coronary artery without angina pectoris; I45.10 Unspecified right bundle-branch block; L89.90 Pressure ulcer of unspecified site, unspecified stage; N28.1 Cyst of kidney, acquired; Z96.642 Presence of left artificial hip joint; R74.0 Nonspecific elevation of levels of transaminase and lactic acid dehydrogenase [LDH]; I49.3 Ventricular premature depolarization; I35.0 Nonrheumatic aortic (valve) stenosis; N18.3 Chronic kidney disease, stage 3 (moderate); Z87.74 Personal history of (corrected) congenital malformations of heart and circulatory system; Z87.891 Personal history of nicotine dependence; Z95.0 Presence of cardiac pacemaker; Z95.1 Presence of aortocoronary bypass graft
CPT/HCPCS: 32555; 33208; 33225; 36415; 36600; 71045; 71275; 74176; 75820; 76604; 76770; 76937; 80048; 80061; 80076; 80305; 80320; 81003; 82040; 82270; 82306; 82375; 82550; 82570; 82607; 82746; 82805; 82962; 83615; 83735; 83880; 84100; 84132; 84300; 84443; 84484; 85014; 85018; 85044; 85379; 86705; 86709; 86803; 86850; 86900; 87340; 88108; 88312; 92523; 93005; 93306; 93451; 93454; 93970; 96361; 96372; 96374; 96375; 97110; 97116; 97162; 97166; 97168; 97530; 99291; C1725; C1758; C1760; C1769; C1887; C1892; C1893; C1898; C1900; J0282; J0690; J1250; J1265; J1580; J1644; J1650; J1815; J1940; J2060; J2250; J2260; J2765; J3010; J3490; J7040; J7060; Q9967; A4315; G0480